=== PATIENT | female | born 1940 | race Caucasian/White ===

== ENCOUNTER 2016-10-05 17:23 | Emergency (ER) | payer MEDICARE, OTHER ==
[~2016-10-05 17:23] MED LIST: ASAB PO; CELEBREX2 PO; COREG3 PO; DCN100 PO; DOX25 PO; FLEX PO; HYDROCHLOROT12.5 MG PO; LEXAPRO10 PO; MULTI-VIT HP PO; MVI PO; NEUR300 PO; PCET PO; PEP20 PO; PLAQ200B PO; PRILOSEC40 MG PO; STRESSIRON PO; VITAMIN B-122500 MCG SL
[2016-10-15] MEDS ORDERED: ZOL100 PO (11:15)
== END 2016-10-05 18:19 | disposition home or self-care (01) ==
LOC: ER 17:23
DX: M96.89 Other intraoperative and postprocedural complications and disorders of the musculoskeletal system (principal); M25.462 Effusion, left knee; I10 Essential (primary) hypertension; K21.9 Gastro-esophageal reflux disease without esophagitis; Z79.82 Long term (current) use of aspirin; Z79.899 Other long term (current) drug therapy; Z90.710 Acquired absence of both cervix and uterus; Z88.2 Allergy status to sulfonamides; Z88.5 Allergy status to narcotic agent
CPT/HCPCS: 96372; 99283; J1170; J2550

== ENCOUNTER 2016-10-29 13:45 | Inpatient (IN) | payer MEDICARE, OTHER ==
[2016-10-14 12:10] LABS: BASOPHILS 0.3 %; BASOPHILS ABSOLUTE 0.02 10/3/uL (0.0-0.16); EOSINOPHILS 1.8 %; EOSINOPHILS ABSOLUTE 0.12 10/3/uL (0.0-0.53); HEMOGLOBIN 12.7 g/dL (12.0-16.0); IMMATURE GRANULOCYTES 0.2 %; IMMATURE GRANULOCYTES ABSOLUTE 0.01 10/3/uL (0.0-0.11); LYMPHOCYTES 30.4 %; LYMPHOCYTES ABSOLUTE 2.01 10/3/uL (0.67-4.30); MEAN CORPUSCULAR HEMOGLOB 31.1 pg (26.0-34.0); MONOCYTES 9.4 %; MONOCYTES ABSOLUTE 0.62 10/3/uL (0.21-1.20); NEUTROPHILS 57.9 %; NEUTROPHILS ABSOLUTE 3.84 10/3/uL (2.02-8.40); PLATELET COUNT 212 10/3/uL (150-400); RBC DISTRIBUTION WIDTH 14.5 % (12.0-16.0); RED CELL COUNT 4.09 10/6/uL (4.0-5.6); WHITE BLOOD CELLS 6.6 10/3/uL (4.5-10.5)
[2016-10-14 12:12] LABS: HEMATOCRIT 37.2 % (36.0-48.0); MANUAL DIFF NO %; MEAN CORPUS HGB CONC 34.1 g/dL (32.0-36.0)
[2016-10-14 12:17] LABS: ASCORBIC ACID (UR NOT ORDER) NEG (NEG); BILIRUBIN, URINE NEGATIVE (NEG); KETONE, URINE NEGATIVE (NEG); LEUKOCYTE ESTERASE(NOT OR MOD (NEG); WBC (NOT ORDERED) (RFLEX) 14 (0-5)
[2016-10-14 12:24] LABS: PARTIAL THROMBO TIME 32.3 SEC (22.5-37.2); PROTIME (NOT ORD) 12.9 SEC (12.0-14.5)
[2016-10-14 12:30] LABS: A/G RATIO 1.1 (0.7-1.9); ALBUMIN 3.5 G/DL (3.5-5.0); CALCIUM, SERUM 9.4 MG/DL (8.5-10.4); CHLORIDE, SERUM 106 MMOL/L (96-112); CO2 (CARBON DIOXIDE) 27 MMOL/L (24-34); CREATININE 0.88 MG/DL (0.55-1.02); GFR AFRICAN AMERICAN 73 ML/MIN (>=60); GFR NON AFRICAN AMERICAN 63 ML/MIN (>=60); GLOBULIN 3.3 G/DL (2.5-4.1); GLUCOSE, SERUM 98 MG/DL (60-99); POTASSIUM, SERUM 4.2 MMOL/L (3.5-5.3); SGOT(AST) 32 U/L (5-40); SGPT(ALT) 38 U/L (5-65); SODIUM, SERUM 141 MMOL/L (135-148); TOTAL BILIRUBIN 0.5 MG/DL (0-1.2); TOTAL PROTEIN 6.8 G/DL (6.0-8.5)
[2016-10-14 12:31] LABS: ALKALINE PHOSPHATASE 142 U/L (45-117); BUN (BLOOD UREA NITROGEN) 13 MG/DL (6-23)
--- NOTE | ~2016-10-29 | DS ---
Discharge Summary [facility] [address] [facility] [place]. [address] NAME: SANDRA BENSON : 36 STATUS : DIS IN PAT#: [id number] AGE: 76 ADM/REG DATE : 10/29/16 MR#: [id number] REPORT SERV DATE: 11/12/16 DICTATED BY: CALLI MAGAÑA DATE: 11/11/16 REPORT STATUS : Draft TRANSCRIBED BY: MICHELLE DATE: 11/11/16 Data Collection from hospitalization DISCHARGE DIAGNOSES: 1. Left knee arthritis. 2. Depression. 3. Heart murmur. CONSULTATIONS: None. PROCEDURES PERFORMED: Left total knee arthroplasty on 10/29/2016. 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 MEDICATIONS: Aspirin 81 mg every morning, Coreg 3.125 mg twice a day, vitamin B12 2500 mcg sublingually every morning, Flexeril 10 mg at bedtime, Neurontin 300 mg every day at bedtime, Platinum 7.5/325 one tablet every four hours as needed, multivitamins as instructed, Prilosec 40 mg every morning, Zoloft 100 mg every morning, and Coumadin as instructed. CONDITION AT DISCHARGE: Stable. DISPOSITION: The patient was discharged home on a regular diet with activities as instructed. She would follow up with Dr. King Triplett on 11/18/2016. She would follow up with Dr. Calli Magaña on 12/09/2016. She would follow up for performance labs on 11/01/[address] Lakshmi Gold on 11/04/2016. HOSPITAL COURSE: This is a 76-year-old female who has left knee osteoarthritis. She had undergone a left knee arthroscopy. She has since had a cortisone injection as well as Monovisc with minimal relief. It was felt that she would need to undergo left total knee arthroplasty. She was admitted to the hospital at this time for further evaluation and treatment. Upon admission, she was taken to the operating room where she underwent the above-mentioned procedure. She tolerated this well, and there were no complications. On postop day #1, she was afebrile. INR level was 1.1. She was doing well postoperatively. She was evaluated by Occupational and Physical Therapy. On postop day #2, she continued to slowly progress. She did have pain in the left knee. We encouraged her to participate with Physical Therapy. Discharge planning was performed. On 11/01/2016, she was alert and cooperative. HARJIT hose were in place. Discharge instructions were given. Due to her improved and stable condition, she was discharged home with the above-stated instructions. Information collected by: Natividad Torres I submit the above information as my discharge summary. TG/MODL Discharge Summary [address] [address] NAME: SANDRA BENSON : 38 STATUS : DIS IN PAT#: [id number] AGE: 76 ADM/REG DATE : 10/29/16 MR#: [id number] REPORT SERV DATE: 11/12/16 DICTATED BY: CALLI MAGAÑA DATE: 11/11/16 REPORT STATUS : Draft TRANSCRIBED BY: MICHELLE DATE: 11/11/16 Calli Magaña M.D. / [id number] CC: Vicente Sparks M.D.
--- NOTE | ~2016-10-29 | OP ---
Record Of Operation [facility] [address] [place]. [address] NAME: SANDRA BENSON : 38 STATUS : ADM IN PAT#: [id number] AGE: 76 ADM/REG DATE : 10/29/16 MR#: [id number] REPORT SERV DATE: 10/30/16 DICTATED BY: CALLI MAGAÑA DATE: 10/29/16 REPORT STATUS : Draft TRANSCRIBED BY: MODL DATE: 10/29/16 DATE OF PROCEDURE: 10/29/2016 PREOPERATIVE DIAGNOSIS: Left knee arthritis. POSTOPERATIVE DIAGNOSIS: Left knee arthritis. PROCEDURE PERFORMED: Left total knee arthroplasty. SURGEON: Calli Magaña M.D. PSYCHOSOCIAL REHABILITATION COUNSELOR: Kemi Solis. ANESTHESIA: General with local infusion and adductor block. PROCEDURE IN DETAIL: The patient is clearly identified and after obtaining informed consent is brought to the operating room at [facility] where anesthesia is induced uneventfully with excellent anesthetic effect. Subsequently, the affected extremity is prepped and draped in the usual manner and after an appropriate time-out procedure is performed, via an anterior approach, the skin is divided, fascial planes are elevated, paramedial approach to the knee is made. The structures themselves are elevated, excised, and debrided were appropriate, whereupon the patella is carefully everted, calipered, and planed and with the size and type being reproduced with the appropriate-size patella, trialing is performed successfully. At this point, the patella is then carefully subluxed laterally, the knee is flexed, osteophytes around the distal femur are removed, followed by the ACL being divided. The femoral canal is entered and vented, at which point with the intramedullary guide being utilized, the distal femoral cut is made. At this point, the tibia is carefully subluxed anteriorly. The surrounding soft tissues to the tibia are protected with Hohmann retractors, at which point the extramedullary guide is utilized to perform the proximal tibial cut and after cleansing these tissues, the spacer block is utilized in extension to confirm excellent extension, stability, and alignment. The guiding pins are then all carefully removed and the knee is then flexed. The femur is sized, whereupon the anterior, posterior, chamfer, and box cuts are made appropriately. The proximal tibia then is assessed. Osteophytes and surrounding soft tissues are removed and debrided were appropriate. Posterior osteophytes are removed as well. The menisci are excised and thus concluding trialings performed successfully. The proximal tibia then is carefully prepared utilizing proper cement technique. The permanent implants have been carefully placed into position uneventfully where upon copious irrigations performed, the permanent tibial implants applied and thus concluded. The joint was then copiously irrigated, at which point it is closed carefully in layers including Vicryl and obed for the skin, at which point Aquacel sterile dressing is applied. The patient is allowed to awaken and is transferred to the bed and subsequently to the recovery room in stable condition having tolerated the procedure well. ESTIMATED BLOOD LOSS: 50 mL. Record Of Operation [facility] [address] [facility] [place]. [address] NAME: SANDRA BENSON : 38 STATUS : ADM IN [facility]#: [id number] AGE: 76 ADM/REG DATE : 10/29/16 MR#: [id number] REPORT SERV DATE: 10/30/16 DICTATED BY: CALLI MAGAÑA DATE: 10/29/16 REPORT STATUS : Draft TRANSCRIBED BY: MICHELLE DATE: 10/29/16 FLUIDS: 1000 mL. TOURNIQUET TIME: 43 minutes. PATHOLOGY: Sent specimen. MICROBIOLOGY: None. COMPLICATIONS: None. SPONGE AND NEEDLE COUNTS: Reportedly correct. ANTIBIOTICS: Administered appropriately preoperatively and ordered to be discontinued within 23 hours. IMPLANTS: Attune knee by DePuy, femur 6 narrow, tibia 5, patella 41, polyethylene 6/7. VAN/MICHELLE Calli Magaña M.D. / [id number] CC: Calli Magaña M.D.
[~2016-10-29 13:45] MED LIST changes: +ZOL100 PO
[2016-10-30 05:20] LABS: BUN (BLOOD UREA NITROGEN) 16 MG/DL (6-23); CALCIUM, SERUM 8.9 MG/DL (8.5-10.4); CHLORIDE, SERUM 106 MMOL/L (96-112); CO2 (CARBON DIOXIDE) 28 MMOL/L (24-34); CREATININE 0.74 MG/DL (0.55-1.02); GFR AFRICAN AMERICAN 90 ML/MIN (>=60); GFR NON AFRICAN AMERICAN 78 ML/MIN (>=60); POTASSIUM, SERUM 4.9 MMOL/L (3.5-5.3); SODIUM, SERUM 141 MMOL/L (135-148)
[2016-10-30 05:26] LABS: GLUCOSE, SERUM 188 MG/DL (60-99)
[2016-10-30 05:30] LABS: INTERNATIONAL NORMAL RATI 1.1 UNITS (-); PROTIME (NOT ORD) 14.2 SEC (12.0-14.5)
[2016-10-30 05:34] LABS: HEMOGLOBIN 10.7 g/dL (12.0-16.0)
[2016-10-30 05:35] LABS: HEMATOCRIT 31.8 % (36.0-48.0)
[2016-10-31 04:54] LABS: HEMATOCRIT 26.4 % (36.0-48.0); HEMOGLOBIN 8.9 g/dL (12.0-16.0)
[2016-10-31 05:02] LABS: PROTIME (NOT ORD) 22.9 SEC (12.0-14.5)
[2016-11-01 05:18] LABS: BASOPHILS 0.2 %; BASOPHILS ABSOLUTE 0.02 10/3/uL (0.0-0.16); EOSINOPHILS 1.2 %; HEMATOCRIT 27.2 % (36.0-48.0); HEMOGLOBIN 9.2 g/dL (12.0-16.0); IMMATURE GRANULOCYTES 0.1 %; IMMATURE GRANULOCYTES ABSOLUTE 0.01 10/3/uL (0.0-0.11); LYMPHOCYTES 25.8 %; LYMPHOCYTES ABSOLUTE 2.11 10/3/uL (0.67-4.30); MEAN CORPUS HGB CONC 33.8 g/dL (32.0-36.0); MEAN CORPUSCULAR HEMOGLOB 31.4 pg (26.0-34.0); MEAN CORPUSCULAR VOLUME 92.8 fL (80-100); MEAN PLATELET VOLUME 9.9 fL (9.2-13.0); MONOCYTES 13.7 %; MONOCYTES ABSOLUTE 1.12 10/3/uL (0.21-1.20); NEUTROPHILS ABSOLUTE 4.82 10/3/uL (2.02-8.40); PLATELET COUNT 200 10/3/uL (150-400); RBC DISTRIBUTION WIDTH 14.9 % (12.0-16.0); WHITE BLOOD CELLS 8.2 10/3/uL (4.5-10.5)
[2016-11-01 05:21] LABS: MANUAL DIFF NO %; RED CELL COUNT 2.93 10/6/uL (4.0-5.6)
[2016-11-01 05:29] LABS: INTERNATIONAL NORMAL RATI 2.4 UNITS (-); PROTIME (NOT ORD) 26.1 SEC (12.0-14.5)
[2016-11-01] MEDS ORDERED: C5 (16:16)
[2016-11-01] MEDS ORDERED: NORCO1 TA2 PO (16:17)
== END 2016-11-01 16:49 | disposition home or self-care (01) | DRG 470 ==
LOC: SDC/OF 13:45 → 3SO 19:44
PROVIDERS: Orthopaedic Surgery
PROC: 3E0T3CZ (ICD-10-PCS; 2016-10-29)
PROC: 0SRD0J9 Replacement of Left Knee Joint with Synthetic Substitute, Cemented, Open Approach (ICD-10-PCS; principal; 2016-10-29 15:30)
DX: M17.12 Unilateral primary osteoarthritis, left knee (principal); G62.9 Polyneuropathy, unspecified; F32.9 Major depressive disorder, single episode, unspecified; I10 Essential (primary) hypertension; K21.9 Gastro-esophageal reflux disease without esophagitis; Z90.710 Acquired absence of both cervix and uterus; Z79.899 Other long term (current) drug therapy
CPT/HCPCS: 36415; 71020; 80048; 80053; 81001; 82962; 85014; 85018; 85025; 85610; 85730; 86850; 86900; 86901; 87086; 87641; 88305; 88311; 93005; 97110-GO; 97110-GP; 97116-GP; 97150-GP; 97161-GP; 97165-GO; 97535-GO; A9270-GY; C1776; J0690; J1170; J1885; J2250; J2274; J2405; J2710; J2795; J3010